=== PATIENT | male | born 1960 | race Caucasian/White ===

== ENCOUNTER → 2019-12-13 | Outpatient (CLI) | payer OTHER ==
--- NOTE | 2019-12-13 14:22 | KCIC ---
EXAM: MRI LEFT KNEE DATE: 12/13/2019 1:15 PM CLINICAL INDICATION: Left knee pain. Swelling anterior left knee. COMPARISON: Left knee radiograph 11/06/2019 TECHNIQUE: Multiplanar, multisequence MRI of the left knee was performed without contrast. FINDINGS: No significant knee joint effusion. Small Razo's cyst. The ACL and PCL are intact. The MCL, fibular collateral ligament, biceps femoris and IT band are intact. Popliteus is intact, normal in signal and morphology. Mild increased signal and thickening of the popliteus tendon. Associated ossification of the distal popliteus tendon may be seen with old [place]-Schlatter disease. Focal ossification ossification of the Hoffa's fat pad. Quadriceps tendon is intact. Supra patellar fat pad edema may be seen with anterior knee pain/impingement. Prepatellar collection measures 3.5 x 1.3 x 4.2 cm with associated debris and internal thickening, consistent with bursitis. Moderate associated edema Medial meniscus: There is an oblique tear of the posterior horn extending to the body of the medial meniscus. No medial meniscal extrusion. Lateral meniscus: Signal irregularity at the inferior articular surface of the posterior horn likely fraying. Chondral thinning and fissuring of the anterior aspect of the medial tibial plateau with subchondral marrow edema. Proximal tibiofibular chondromalacia with subchondral edema. No fracture or osteonecrosis. IMPRESSION: 1. Prepatellar bursitis with associated edema possibly from recent partial rupture. 2. Focal ossification of Hoffa's fat pad possibly posttraumatic or heterotopic. 3. Oblique tear posterior horn medial meniscus extending to the body segment. 4. Signal irregularity at the inferior articular surface of the posterior horn lateral meniscus may represent focal fraying. 5. Small Razo's cyst. Electronically signed by: Madhu Lombardo MD (12/13/2019 2:19 PM) [id number]
== END | disposition home or self-care (01) ==
LOC: KCIC MRI 12:53
PROVIDERS: ATTEND Physician Assistant
DX: S83.242A Other tear of medial meniscus, current injury, left knee, initial encounter (principal); M71.22 Synovial cyst of popliteal space [Baker], left knee; M67.864 Other specified disorders of tendon, left knee; M94.262 Chondromalacia, left knee; M79.4 Hypertrophy of (infrapatellar) fat pad; X58.XXXA Exposure to other specified factors, initial encounter; Y93.89 Activity, other specified; Y92.89 Other specified places as the place of occurrence of the external cause; Y99.8 Other external cause status
CPT/HCPCS: 73721